=== PATIENT | male | born 1995 | race Caucasian/White ===

== ENCOUNTER 2017-07-29 00:11 | Observation (INO) ==
[2017-07-29 00:47] LABS: Basophils # 0.1 K/mcL (0.0-0.2); Basophils % 0.3 %; Eosinophils % 0.1 %; Hematocrit 43.8 % (37.5-50.1); Hemoglobin 15.1 g/dL (12.9-16.9); Immature Granulocytes % 0.5 % (0-4); Lymphocytes # 1.5 K/mcL (0.6-4.6); Lymphocytes % 9.1 %; Mean Corpuscular HGB Conc 34.5 g/dL (31.6-35.5); Mean Corpuscular Volume 84.1 fL (83.0-100.0); Mean Platelet Volume 9.2 fL (9.4-12.4); Monocytes # 0.8 K/mcL (0.0-1.3); Monocytes % 4.9 %; Neutrophils # 13.5 K/mcL (1.6-8.9); Platelet Count 295 K/mcL (140-400); Red Blood Count 5.21 M/mcL (4.19-5.50); Red Cell Distribution Width 12.8 % (11.5-14.5); Segmented Neutrophils % 85.1 %
[2017-07-29 00:48] LABS: Bilirubin,Urine Negative (Negative); Blood,Urine Negative (Negative); Clarity,Urine Clear (Clear); Color,Urine Yellow (Yellow); Glucose,Urine (UA) 100 mg/dL (Normal); Ketones,Urine Negative (Negative); Leukocyte Esterase,Urine Negative (Negative); Nitrite,Urine Negative (Negative); PH,Urine 5.5 pH Units (5.0-8.0); Protein,Urine Negative (Neg-Trace); Specific Gravity,Urine > 1.030 (1.010-1.025); Urobilinogen,Urine Normal (Normal)
[2017-07-29 01:12] LABS: Alanine Aminotransferase 67 Units/L (7-52); Albumin 4.8 g/dL (3.5-5.7); Albumin/Globulin Ratio 1.8 (1.1-2.2); Alkaline Phosphatase 76 Units/L (34-104); Aspartate Amino Transferase 29 Units/L (13-39); BUN/Creatinine Ratio 18 (6-26); Bilirubin,Direct 0.1 mg/dL (0.0-0.2); Bilirubin,Indirect 0.7 mg/dL (0.0-1.2); Bilirubin,Total 0.8 mg/dL (0.3-1.0); Blood Urea Nitrogen 14 mg/dL (6-20); Calcium 9.5 mg/dL (8.6-10.3); Carbon Dioxide 23 mEq/L (23-29); Chloride 105 mEq/L (98-107); Globulin 2.7 g/dL (2.4-3.5); Glucose 116 mg/dL (70-105); Lipase 11 Units/L (11-82); Osmolality,Calculated 283 (280-300); Potassium 3.6 mEq/L (3.5-5.1); Sodium 136 mEq/L (136-145); Total Protein 7.5 g/dL (6.4-8.9); eGFR For African Americans > 60; eGFR For Non-African Americans > 60
--- NOTE | 2017-07-29 01:48 | Emergency Department Note ---
Disposition Clinical Impression: Appendicitis Qualifiers: Appendicitis type: acute appendicitis Acute appendicitis type: unspecified acute appendicitis type Qualified Code(s): K35.80 - Unspecified acute appendicitis Disposition: Admitted As Inpatient Condition: Good Time of Disposition: 03:55 Abdominal Pain HPI - General Chief Complaint: ED Abdominal Pain Stated Complaint: lower right quadrant pain Time Seen by Provider: 07/29/17 01:08 Source: patient Mode of arrival: ambulatory Limitations: no limitations Nursing Notes Reviewed: Yes Vital Signs Reviewed: Yes - History of Present Illness HPI Narrative: Patient is a 21-year-old male with no past medical history. He presents today due to right lower quadrant pain, nausea, diarrhea. He states that this began around 5 PM on 07/28/2017. He states that the pain is a dull ache in the right lower quadrant with no radiation. Denies any other dysuria, hematuria, no fevers, chest pain, shortness of breath. Patient does still have his appendix. No other URI symptoms. Pain Scale: 5 - Related Data Allergies Allergy/AdvReac Type Severity Reaction Status Date / Time No Known Allergies Allergy Verified 07/29/17 00:18 All systems ED: reviewed and negative except as stated. Constitutional: Denies: fever Cardiovascular: Denies: chest pain, palpitations Respiratory: Denies: cough, dyspnea, wheezes Gastrointestinal: Reports: abdominal pain, nausea. Denies: vomiting, diarrhea, constipation, hematemesis, melena, hematochezia Genitourinary: Denies: urgency, dysuria, frequency, hematuria Neurological: Denies: headache, weakness, numbness, paresthesias Abdominal Pain PMH - Past Medical History Medical history: Reports: no medical history - Social History Smoking status: Never smoker Alcohol use: Reports: none Drug use: Reports: none Physical Exam - General Limitations: no limitations General appearance: alert, in no apparent distress - Head Head exam: atraumatic, normocephalic, normal inspection - Eye Eye exam: Present: normal appearance, PERRL, EOMI - ENT ENT exam: normal exam, normal oropharynx, mucous membranes moist - Neck Neck exam: Present: normal inspection, full ROM, trachea midline - Chest Chest inspection: Present: normal inspection, symmetric chest wall rise - Respiratory Respiratory exam: Present: normal lung sounds bilaterally - Cardiovascular Cardiovascular exam: Present: regular rate, normal rhythm, normal heart sounds - Abdominal Exam Abdominal exam: Present: soft, tenderness (Focal right lower quadrant tenderness ), tenderness at McBurney's Point. Absent: distention, guarding, rebound, rigidity, Tom's sign, Rovsing's sign - Extremities Exam Extremities exam: Present: normal inspection, full ROM. Absent: tenderness, pedal edema - Neurological Exam Neurological exam: Present: alert, oriented X3 - Psychiatric Psychiatric exam: Present: normal affect, normal mood - Skin Skin exam: Present: warm, dry, intact, normal color Course Course Narrative: Patient was mildly tachycardic on presentation. Otherwise, the rest of vitals within normal limits. Physical exam showed focal right lower quadrant tenderness. Currently concern for appendicitis. Elevated white blood cell count. Urinalysis and BMP and negative. We will obtain CT scan with IV contrast for further assessment. 03:[address] abdomen and pelvis was positive for acute appendicitis. I spoke with the surgeon production specialist, Dr. Maier, he has came and evaluated the patient at bedside and does consider the patient for appendectomy and is accepting the patient to his service. No additional recommendations were given at this time. Patient admitted to his care. Abdomen/Pelvis CT 07/29/17 01:55 IMPRESSION: Findings consistent with acute appendicitis. No findings to suggest rupture. Tiny triangular nodule in the left lower lobe. In a patient of this age, this is typically related to a benign process such as granulomatous disease. Follow-up imaging is not routinely recommended. D/ / Wander Eldridge MD / Wander Eldridge MD Interpreting Provider: Wander Eldridge MD Vital Signs Temperature 98.6 F 07/29/17 00:13 Pulse Rate 122 07/29/17 00:13 Respiratory Rate 18 07/29/17 00:13 Blood Pressure 142/77 07/29/17 00:13 O2 Sat by Pulse Oximetry 99 07/29/17 00:13 Temperature 98.6 F 07/29/17 00:13 Pulse Rate 110 07/29/17 03:45 Respiratory Rate 20 07/29/17 03:45 Blood Pressure 135/82 07/29/17 03:45 O2 Sat by Pulse Oximetry 99 07/29/17 00:13 Oxygen Delivery Oxygen Delivery Room Air Abdominal Pain - MDM Narrative Medical decision making narrative: Patient was mildly tachycardic on presentation. Otherwise, the rest of vitals within normal limits. Physical exam showed focal right lower quadrant tenderness. Currently concern for appendicitis. Elevated white blood cell count. Urinalysis and BMP and negative. We will obtain CT scan with IV contrast for further assessment. 03:[address] abdomen and pelvis was positive for acute appendicitis. I spoke with the surgeon production specialist, Dr. Maier, he has came and evaluated the patient at bedside and does consider the patient for appendectomy and is accepting the patient to his service. No additional recommendations were given at this time. Patient admitted to his care. - Medical Records Medical records reviewed: Yes I reviewed the patient's medical records. - Lab Data Lab results reviewed: Yes I reviewed the patient's lab results. Result diagrams: 07/29/17 00:40 07/29/17 00:40 Lab Results 07/29/17 07/29/17 07/29/17 Range/Units 00:40 00:40 00:40 WBC 15.9 H (4.3-11.1) K/mcL RBC 5.21 (4.19-5.50) M/mcL Hgb 15.1 (12.9-16.9) g/dL Hct 43.8 (37.5-50.1) % MCV 84.1 (83.0-100.0) fL MCH 29.0 (28.0-33.3) pg MCHC 34.5 (31.6-35.5) g/dL RDW 12.8 (11.5-14.5) % Plt Count 295 (140-400) K/mcL MPV 9.2 L (9.4-12.4) fL Immature Gran % 0.5 (0-4) % Seg Neutrophils % 85.1 % Lymphocytes % 9.1 % Monocytes % 4.9 % Eosinophils % 0.1 % Basophils % 0.3 % Neutrophils # 13.5 H (1.6-8.9) K/mcL Lymphocytes # 1.5 (0.6-4.6) K/mcL Monocytes # 0.8 (0.0-1.3) K/mcL Eosinophils # 0.0 (0.0-0.6) K/mcL Basophils # 0.1 (0.0-0.2) K/mcL PT (9.4-12.1) Seconds INR APTT (26.0-36.0) Seconds Sodium 136 (136-145) mEq/L Potassium 3.6 (3.5-5.1) mEq/L Chloride 105 (98-107) mEq/L Carbon Dioxide 23 (23-29) mEq/L BUN 14 (6-20) mg/dL Creatinine 0.78 (0.70-1.30) mg/dL Est GFR ( Amer) > 60 Est GFR (Non-Af Amer) > 60 BUN/Creatinine Ratio 18 (6-26) Glucose 116 H (70-105) mg/dL Calculated Osmolality 283 (280-300) Calcium 9.5 (8.6-10.3) mg/dL Total Bilirubin 0.8 (0.3-1.0) mg/dL Direct Bilirubin 0.1 (0.0-0.2) mg/dL Indirect Bilirubin 0.7 (0.0-1.2) mg/dL AST 29 (13-39) Units/L ALT 67 H (7-52) Units/L Alkaline Phosphatase 76 (34-104) Units/L Serum Total Protein 7.5 (6.4-8.9) g/dL Albumin 4.8 (3.5-5.7) g/dL Globulin 2.7 (2.4-3.5) g/dL Albumin/Globulin Ratio 1.8 (1.1-2.2) Lipase 11 (11-82) Units/L Urine Color Yellow (Yellow) Urine Clarity Clear (Clear) Urine pH 5.5 (5.0-8.0) pH Units Ur Specific [place] > 1.030 H (1.010-1.025) Urine Protein Negative (Neg-Trace) mg/dL Urine Glucose (UA) 100 H (Normal) mg/dL Urine Ketones Negative (Negative) mg/dL Urine Blood Negative (Negative) Urine Nitrite Negative (Negative) Urine Bilirubin Negative (Negative) Urine Urobilinogen Normal (Normal) mg/dL Ur Leukocyte Esterase Negative (Negative) 07/29/17 Range/Units 01:34 WBC (4.3-11.1) K/mcL RBC (4.19-5.50) M/mcL Hgb (12.9-16.9) g/dL Hct (37.5-50.1) % MCV (83.0-100.0) fL MCH (28.0-33.3) pg MCHC (31.6-35.5) g/dL RDW (11.5-14.5) % Plt Count (140-400) K/mcL MPV (9.4-12.4) fL Immature Gran % (0-4) % Seg Neutrophils % % Lymphocytes % % Monocytes % % Eosinophils % % Basophils % % Neutrophils # (1.6-8.9) K/mcL Lymphocytes # (0.6-4.6) K/mcL Monocytes # (0.0-1.3) K/mcL Eosinophils # (0.0-0.6) K/mcL Basophils # (0.0-0.2) K/mcL PT 12.2 H (9.4-12.1) Seconds INR 1.1 APTT 31.5 (26.0-36.0) Seconds Sodium (136-145) mEq/L Potassium (3.5-5.1) mEq/L Chloride (98-107) mEq/L Carbon Dioxide (23-29) mEq/L BUN (6-20) mg/dL Creatinine (0.70-1.30) mg/dL Est GFR ( Amer) Est GFR (Non-Af Amer) BUN/Creatinine Ratio (6-26) Glucose (70-105) mg/dL Calculated Osmolality (280-300) Calcium (8.6-10.3) mg/dL Total Bilirubin (0.3-1.0) mg/dL Direct Bilirubin (0.0-0.2) mg/dL Indirect Bilirubin (0.0-1.2) mg/dL AST (13-39) Units/L ALT (7-52) Units/L Alkaline Phosphatase (34-104) Units/L Serum Total Protein (6.4-8.9) g/dL Albumin (3.5-5.7) g/dL Globulin (2.4-3.5) g/dL Albumin/Globulin Ratio (1.1-2.2) Lipase (11-82) Units/L Urine Color (Yellow) Urine Clarity (Clear) Urine pH (5.0-8.0) pH Units Ur Specific [place] (1.010-1.025) Urine Protein (Neg-Trace) mg/dL Urine Glucose (UA) (Normal) mg/dL Urine Ketones (Negative) mg/dL Urine Blood (Negative) Urine Nitrite (Negative) Urine Bilirubin (Negative) Urine Urobilinogen (Normal) mg/dL Ur Leukocyte Esterase (Negative) - Radiology Data Radiology results reviewed: Yes I reviewed the patient's radiology results. Abdomen/Pelvis CT 07/29/17 01:55 IMPRESSION: Findings consistent with acute appendicitis. No findings to suggest rupture. Tiny triangular nodule in the left lower lobe. In a patient of this age, this is typically related to a benign process such as granulomatous disease. Follow-up imaging is not routinely recommended. D/ / Wander Eldridge MD / Wander Eldridge MD Interpreting Provider: Wander Eldridge MD Marzena - Marzena Situation: Demographics, MOA Background: Presenting Complaint, Relevant PMH, Meds, & Allergies Assessment: Vital Signs, Course and respsone to treatment, Exam Concerns, Patient/Family Expectation, Pertinant Lab Results Recommendation: Barrier(s) to disposition, Recommendation based on pending studies, treatments, or consults SCory Report Given to: Dr. Darrion Ivan Repor Time: 03:55 Attestation Statement - Attestation Attestation: I, Lázaro Khan MD, personally evaluated this patient and discussed their management with the resident physician. I reviewed the resident's note and agree with the documented findings, medical decision making, and plan of care. 21-year-old male presents to the emergency department with a complaint of right lower quadrant abdominal pain that started about 5 PM today. Onset was gradual in the pain is Progressively worse since onset. There has been some nausea but no vomiting. No definite fever. Some mild diarrhea. No melena, hematemesis, or hematochezia. No hematuria or dysuria. Some decreased appetite. On examination patient is a well-developed well-nourished well-appearing young male in no acute distress. He is alert and oriented 3. There is no cyanosis or diaphoresis. Chest is nontender to palpation. Breath sounds are clear and equal bilaterally. Heart regular rate and rhythm. Abdomen is soft with normal bowel sounds. There is moderate right lower quadrant tenderness over McBurney' s point with guarding and mild rebound. Labs reviewed. Leukocytosis. CT of the abdomen and pelvis shows: Findings consistent with acute appendicitis. No findings to suggest rupture. The surgeon production specialist, Dr. Maier, was consulted and came and evaluated the patient in the emergency department and is taking the patient to the OR and admitted to his service.
[2017-07-29] MEDS ORDERED: 0.9 % Sodium Chloride 1,000 ML IVC ONE ×2 (02:02→04:25)
[2017-07-29] MEDS ORDERED: Ketorolac 15 MG/ML VIAL IVP ONE (03:24)
[2017-07-29 03:56] LABS: INR 1.1; Prothrombin Time 12.2 Seconds (9.4-12.1)
[2017-07-29 03:58] LABS: Activated Partial Thrombo Time 31.5 Seconds (26.0-36.0)
--- NOTE | 2017-07-29 04:20 | General Surg History&Physical ---
Date of Encounter: 07/29/17 Time of Encounter: 04:18 Assessment and Plan (1) Appendicitis Current Visit: Yes Status: Acute 21M with acute appendicitis; admit pain control IVF abx npo plan for OR today... The assessment and plan as outlined above was discussed with the patient and/or family members who expressed understanding and agreement. All questions were answered. Qualifiers: Appendicitis type: acute appendicitis Acute appendicitis type: with localized peritonitis Qualified Code(s): K35.3 - Acute appendicitis with localized peritonitis History of Present Illness Chief complaint: abdominal pain HPI: Mr. Husain is a 21 year old male h/o obesity who presents with one day history of worsening RLQ pain. The pain was described as severe and sudden with no identifiable alleviating factors besides not moving; no fevers currently; He presents to the ED for further evaluation; Past Med Surg Social Fam HX - Past Medical History Medical history: no medical history - Past Surgical History Surgical History: no surgical history - Social History Smoking Status: Never smoker Smokeless Tobacco Status: No Alcohol use: none Drug use: none - Additional Family History Additional family history: non contributory Medications and Allergies 3 Allergy/AdvReac Type Severity Reaction Status Date / Time No Known Allergies Allergy Verified 07/29/17 00:18 Review of Systems All systems PM: The remainder of the systems were reviewed and are negative General Surgery Exam Initial Vital Signs Temp Pulse Resp BP Pulse Ox 98.6 F 122 18 142/77 99 07/29/17 00:13 07/29/17 00:13 07/29/17 00:13 07/29/17 00:13 07/29/17 00:13 - General physical appearance no distress - ENT normocephalic - Neck no lymphadectomy - Respiratory normal expansion, normal respiratory effort - Cardiovascular Cardiovascular exam: Present: RRR - Abdomen Abdomen general surgery: Present: soft, tender Abdominal Tenderness: Present: RLQ - Integumentary Integumentary general surgery: Present: warm and dry - Neurologic Present: CN 2-12 grossly intact - Psychiatric Psychiatric general surgery: Present: A&Ox3 Results - Labs 07/29/17 00:40 07/29/17 00:40 Abnormal lab results WBC 15.9 K/mcL (4.3-11.1) H 07/29/17 00:40 MPV 9.2 fL (9.4-12.4) L 07/29/17 00:40 Neutrophils # 13.5 K/mcL (1.6-8.9) H 07/29/17 00:40 PT 12.2 Seconds (9.4-12.1) H 07/29/17 01:34 Glucose 116 mg/dL (70-105) H 07/29/17 00:40 ALT 67 Units/L (7-52) H 07/29/17 00:40 Ur Specific [place] > 1.030 (1.010-1.025) H 07/29/17 00:40 Urine Glucose (UA) 100 mg/dL (Normal) H 07/29/17 00:40 All other labs normal. - Imaging CT scan - abdomen: report reviewed, image reviewed CT scan - pelvis: report reviewed, image reviewed (all imaging reviewed and interpreted by me in combination with radiology reads;)
[2017-07-29] MEDS ORDERED: Ketorolac 30 MG/ML VIAL IVP PRN (04:25)
[2017-07-29] MEDS ORDERED: Ondansetron 4 MG/2 ML VIAL IVP PRN ×2 (04:25→10:44)
[2017-07-29] MEDS ORDERED: D5% in 0.45% NACL w KCl 20 MEQ/1,000 ML MLS IVC SCH ×2 (04:30→10:44)
[2017-07-29] MEDS: Piperacillin/Tazobactam 3.375 GM in 0.9 % Sodium Chloride Mini Bag 100 ML IVPB SCH ×2 (07:43→08:45)
--- NOTE | 2017-07-29 07:46 | Anesthesia Evaluation PreOp ---
Date of Encounter: 07/29/17 Time of Encounter: 07:45 - Past History Planned Operation: Lap. Appy Cardiac History: Denies any Significant Hx Pulmonary History: Denies Any Significant HX TELEVISION EQUIPMENT OPERATOR History: Denies Any Significant HX Other Medical History: Denies Any Significant HX Anesthesia History: No Prior Anesthetic Complications, Past Anesthesia Alcohol Use: none Drug use: none Medications and Allergies No Known Home Drugs 07/29/17 [History] 3 Allergy/AdvReac Type Severity Reaction Status Date / Time No Known Allergies Allergy Verified 07/29/17 00:18 - Meds/Allergy Pre-op Review Medications Reviewed: Yes Allergies Reviewed: Yes Beta Blockers on Current Med List: No Anesthesia Results - Labs 07/29/17 00:40 07/29/17 00:40 Anesthesia Exam Vital Signs/O2 Sat, Most Current Temp Pulse Resp BP Pulse Ox 98.4 F 111 14 143/81 100 07/29/17 05:51 07/29/17 05:51 07/29/17 05:51 07/29/17 05:51 07/29/17 05:51 NPO (# of Hours): > 8 Hrs Pain Scale: 0 Pain Scale Used: Numeric (1 - 10) - HEENT Pupil (Motor): EOMI Mallampati: III Teeth: Normal Oral Opening: Greater than 3 - TELEVISION EQUIPMENT OPERATOR LOC: Oriented TELEVISION EQUIPMENT OPERATOR Motor: Normal RUE, Normal LUE, Normal RLE, Normal LLE, Normal Face TELEVISION EQUIPMENT OPERATOR Sensory: Normal: RUE, LUE, RLE, LLE, Face - Cardiac Rhythm: Regular Murmur: None JVD: No Carotid Bruit: No - Pulmonary Breath Sounds: bilateral Clear Respiratory Effort: Symmetrical Anesthesia Assess/Plan ASA Score: 1 Modified [place] Scale for Level of Consciousness: Cooperative, oriented, and tranquil Anesthetic Plan: General Autologous Blood: Yes Recovery Plan: PACU
[2017-07-29] MEDS ORDERED: *HR* Propofol 200 MG/20 ML VIAL IVP ONE ×2 (08:50→09:03)
[2017-07-29] MEDS ORDERED: Lidocaine -MPF 4% 5 ML AMPUL ONE (08:50)
[2017-07-29] MEDS ORDERED: Ondansetron 4 MG/2 ML VIAL ONE (08:50)
[2017-07-29] MEDS ORDERED: Dexamethasone 4 MG/ML VIAL ONE ×2 (08:50)
[2017-07-29] MEDS ORDERED: *HR* Rocuronium Bromide 50 MG/5 ML VIAL ONE (08:50)
[2017-07-29] MEDS ORDERED: Neostigmine Methylsulfate 3 MG/3 ML SYRINGE ONE (08:50)
[2017-07-29] MEDS ORDERED: Lidocaine -MPF 2% 2 ML VIAL ONE (08:50)
[2017-07-29] MEDS ORDERED: *HR* FentaNYL (PF) 100 MCG/2 ML VIAL ONE (08:50)
[2017-07-29] MEDS ORDERED: *HR* Succinylcholine 200 MG/10 ML VIAL IVP ONE (08:50)
[2017-07-29] MEDS ORDERED: *HR* Midazolam HCl 2 MG/2 ML VIAL ONE (08:50)
[2017-07-29] MEDS ORDERED: Ketamine *HR* 500 MG/10 ML MDV ONE (08:56)
--- NOTE | 2017-07-29 09:04 | Anesthesia Procedures ---
Date of Encounter: 07/29/17 Time of Encounter: 08:30 Procedures: Anesthesia - Nerve Block Procedure Date: 07/29/17 Time: 08:30 Allergies/Adv Reactions: [id number] Pre-op Diagnosis: acute appendicitis Surgical Procedure: lap appy Checklist: Correct Patient Identifier, Correct procedure, History checked Blood Thinner: No (SUBCOSTAL TAP/MIDAXILLARY TAP BILATERAL) Monitor Applied: EKG, BP, Pulse Oximetry Supplemental Oxygen via Nasal Cannula (L/min): 2 Sedation: Versed (mg): 2 Sedation: Fentanyl (mcg): 100 Indication: Post Op Analgesia Pre-op Neuro Deficits: No Block Type: Other (MID Axillary TAP/SUBCOSTAL TAP ) Catheter placed: No Sterile Technique: Yes Ultrasound used: Yes Anatomy identified: Yes Visual spread of Local: Yes Neuro Stimulation: No Blood on Needle Aspiration: No Smooth Injection of Local: Yes Pain with Injection of Local: No Prep: Chlorhexadine Needle: 21 x 100 mm Stimuplex Local: Ropivacaine Volume (cc): 80 Number of Attempts: 1 Complications: None/effective block Vitals: Vital Signs - Last 8 Hours Temp Pulse Resp BP Pulse Ox 07/29/17 05:51 98.4 F 111 14 143/81 100 07/29/17 05:23 100.1 F H 16 117/53 07/29/17 05:05 100.1 F H 110 16 117/53 96 07/29/17 03:45 110 20 135/82 07/29/17 03:19 110 16 107/72 07/29/17 01:59 128 16 124/79 Intake and Output 07/28/17 07/29/17 07/29/17 23:59 07:59 15:59 Intake Total 1300 / 1300 100 / 100 Output Total 400 / 400 Balance 900 / 900 100 / 100 Intake: IV Fluids 1300 / 1300 100 / 100 0.9 % Sodium Chloride 1,000 ML 1000 / 1000 @ 3750 mls/hr IVC .Q16M ONE Rx# :[id number] KCl 20mEq IN D5%-0.45 NACL 20 300 / 300 meq In 1,000 ml @ 100 mls/hr IVC .Q10H KACEY Rx#:[id number] Zosyn 3.375 GM In 0.9 % Sodium 100 / 100 Chloride (Mini-Bag +) 100 ML @ 25 mls/hr IVPB Q8HR KACEY Rx#: [id number] Output: Urine 400 / 400 Other: Stool Color Brown Weight 105.3 kg Blood Glucose* 104 Patient Weight 07/29/17 23:59 Weight 105.3 kg Comments: 20ML ON EACH SIDE/EACH BLOCK
[2017-07-29] MEDS ORDERED: *HR* Promethazine 25 MG/ML VIAL IVP PRN (09:11)
[2017-07-29] MEDS ORDERED: *HR* HYDROmorphone (PF) 1 MG/ML SYRINGE IVP PRN (09:11)
--- NOTE | 2017-07-29 09:37 | Operative Note ---
Date of procedure: 07/29/17 Pre-op diagnosis: acute appendicitis Post-op diagnosis: same Procedure: laparoscopic appendectomy Complications: none Anesthesia: GETA Surgeon: Ariel Maier Was there an academic support assistant present: No Bush Regenerator Other: jae ventura Estimated blood loss (cc): 10 Specimen: appendix Condition: stable Disposition: PACU Procedure in Detail: The patient was brought into the operating room suite. The patient was placed in the supine position. Mechanical DVT prophylaxis was initiated. The patient underwent smooth induction of general endotracheal anesthesia. The patient was prepped and draped in the usual fashion. Preoperative antibiotics were given. A timeout was held identifying the correct patient, pathology, and procedure. Everyone was in agreement and we began a procedure. Incision to Mesenteric Window I started bycreating a supraumbilical incision and via open Mercedes technique entered into the abdomen. I then used a Vicryl suture on a UR 6 needle in a [id number] fashion to reapproximate but not close the fascia. I then inserted the 10 trocar followed by the camera to visualize the intraabdominal cavity. I then created a 5 mm incision suprapubically and inserted the 5 mm trocar under direct visualization. Roughly 1 handbreadth lateral to the umbilical incision I created another 5 mm incision and inserted another 5 mm trocar under direct visualization. I then inserted the nontraumatic instruments into the 5 mm ports and began the procedure. I was able to identify the tinea coli coalescing at the base of the cecum to identify the appendix. Using the nontraumatic grasper I was able to grasp the appendix and then using the [place] dissector was able to create a mesenteric window. Mesenteric Window to Appendectomy I then inserted the nontraumatic grasper into the same mesenteric window to widen it. I then grasped the appendix and switched from the 10 mm camera to the 5 mm camera so that we can insert the stapler through the umbilical port. The teeth of the stapler through the mesenteric window. It should be stated that the stapler was a 45 mm bowel load stapler. It was positioned at the base of the appendix and I was able to confirm under direct visualization that the teeth contained no other structures such as the cecum. I then fired the stapler and resected the appendix from the base of the cecum. I then loaded up a vascular load stapler and then in the similar fashion did fire across the mesentery. There was bleeding noted which was controlled with electrocautery Retrieval to Closure I then inserted the Endo Catch bag to retrieve the specimen which was intact upon retrieval. I then switched back to the 10 mm camera and inserted the nontraumatic grasper as well as a suction-administration clerk into the 5 mm ports. And under direct visualization I was able to appreciate the staple line of the mesoappendix as well as the staple line of the base of the cecum. There was no obvious leaking nor bleeding. The pelvis did not have any collection of fluid. I then concluded the procedure, turned off the insufflation, removed the trochars under direct visualization, and then closed the umbilical fascia using the Vicryl suture that was placed at the beginning. I then closed all incisions with interrupted 4-0 Monocryl. And then sealed with Dermabon. It should be stated that I did use 0.5% Marcaine as a local anesthetic. The patient tolerated the procedure well and did go back to PACU in stable condition.
--- NOTE | 2017-07-29 09:40 | Discharge Summary ---
Orders not resulted at time of discharge: Pending orders 07/29/17 09:29 Surgical Pathology [PTH] Routine Date of Encounter: 07/29/17 Time of Encounter: 09:40 - Discharge Diagnosis (1) Appendicitis Priority: Primary Status: Acute Comments: presented with acute appendicitis; went for laparoscopic appendectomy; uneventful procedure met discharge criteria the same day and was discharged home Qualifiers: Appendicitis type: acute appendicitis Acute appendicitis type: with localized peritonitis Qualified Code(s): K35.3 - Acute appendicitis with localized peritonitis General Surgery Exam Initial Vital Signs Temp Pulse Resp BP Pulse Ox 98.6 F 122 18 142/77 99 07/29/17 00:13 07/29/17 00:13 07/29/17 00:13 07/29/17 00:13 07/29/17 00:13 - General physical appearance well developed, no distress - Eyes normal ocular movement - ENT normocephalic - Neck no lymphadectomy - Respiratory normal expansion, normal respiratory effort - Cardiovascular Cardiovascular exam: Present: RRR - Abdomen Abdomen general surgery: Present: soft, tender (appropriately tender) - Incision Incision: Present: clean and dry, intact - Integumentary Integumentary general surgery: Present: warm and dry - Neurologic Present: CN 2-12 grossly intact - Musculoskeletal Present: normal posture - Psychiatric Psychiatric general surgery: Present: A&Ox3 - Hospital Course Hospital course: Mr. Husain is a 21 year old male - Time Spent with Patient Total time spent providing and/or coordinating discharge services: Greater than 30 minutes - Discharge Medications Home Medications: No Known Home Drugs 07/29/17 [History] Allergies/Adverse Reactions: 3 Allergy/AdvReac Type Severity Reaction Status Date / Time No Known Allergies Allergy Verified 07/29/17 00:18 Date of admission: 07/29/17 03:55 Primary care physician: PCP NONE Discharging clinician: Ariel Maier Anticipated date of discharge: 07/29/17 - Patient Status Disposition: Home, Self-Care Condition: Good - Discharge Instructions Follow Up With: NONE,PCP [Primary Care Provider] - Ina Chavez MD [Family Provider] - Emily Hughes CNP [Advanced Practice Nurse] - 08/12/17 Additional Instructions: Pain Narcotics are prescribed. 1-2 tabs every 6 hours. Please take with meals. DO NOT drive while taking narcotics. Activity As tolerated. However, I encourage you to limit heaving lifting and strenuous activity until evaluated in clinic. Diet As tolerated. Please start with liquids for the first 6 hours after surgery. Your meal after 6 hours can be a regular diet. Bowel Regimen As long as you are taking narcotics, please take the stool softner daily. Warnings If you experience significant redness around the incision or drainage from the incision that is purulent or malodorous, or you experience fevers, chills, or food intolerance (including nausea, vomiting, abdominal pain or distension), or any symptoms you feel warrant evaluation, please call the office. If unable to reach the office, please go to nearest urgent care center or emergency department - Diet and Activity Activity: increase activity as tolerated, resume usual activities as tolerated Diet: advance to your usual diet
[2017-07-29] MEDS ORDERED: Acetaminophen IV 1,000 MG/100 ML INFUS..BTL IVPB ONE (09:42)
[2017-07-29] MEDS ORDERED: Ibuprofen 600 MG TABLET PO PRN (10:44)
[2017-07-29] MEDS ORDERED: Ketorolac 30 MG/ML VIAL ONE (10:58)
[2017-07-29] MEDS: *HR* OxyCODONE/APAP 5/325 TABLET PO PRN ×2 (11:30→17:31)
--- NOTE | 2017-07-29 11:40 | Anesthesia Evaluation Post Op ---
Date of Encounter: 07/29/17 Time of Encounter: 11:00 - Vital Signs Vital Signs: Vital Signs/O2 Sat/Glucose, Most Current Temp Pulse Resp BP Pulse Ox 07/29/17 11:15 97.9 F 97 16 137/81 99 07/29/17 10:46 97.9 F 100 16 133/84 99 07/29/17 10:29 96 16 135/91 99 07/29/17 10:19 108 16 118/80 99 07/29/17 10:09 99.0 F 81 12 113/62 99 07/29/17 09:59 78 10 113/58 99 07/29/17 09:49 77 10 107/52 99 07/29/17 09:39 98.8 F 77 12 106/54 98 - Lungs Lungs: Clear Ascult./Percussion - Airway Airway: Non-obstructed - Cardiovascular Regular Rate - Mental Status Mental Status: Alert & Oriented, Answers Appropriately - Pain Pain Scale: 0 - Nausea Vomiting Nausea Vomiting: Not Present - Hydration Hydration: Ice chips - Discharge PostOp Status: Transfer Patient to floor
[2017-07-29 14:08] VITALS: BP 106/62
== END 2017-07-29 17:51 | disposition home or self-care (01) ==
LOC: EMEROO 00:11 → 2SOUTHHOLD 00:11
PROVIDERS: ADMIT Surgery; ATTEND Surgery